=== PATIENT | female | born 1965 | race Two or more races ===

== ENCOUNTER 2019-06-24 13:42 | Emergency (ER) | payer OTHER ==
[~2019-06-24] VITALS: Ht 154.9 cm; Wt 66.0 kg
[2019-06-24] MEDS ORDERED: TETANUS, DIPHTHERIA, PERTUSSIS VAC/PF 0.5ML (>7YR OLD) IM ONE (16:45)
[2019-06-24] MEDS ORDERED: ACETAMINOPHEN 325MG TABLET PO ONE (16:45)
[2019-06-24] MEDS ORDERED: BACITRACIN ZINC OINT UDPKT TOP ONE ×2 (16:45)
[2019-06-24] MEDS ORDERED: LIDOCAINE HCL/PF 1% 10 MG/ML 5ML VIAL IJ ONE (16:45)
[2019-06-24] MEDS ORDERED: IBUPROFEN 600MG TABLET PO ONE (16:45)
[2019-06-24 19:08] VITALS: BP 154/73
== END 2019-06-24 19:10 | disposition home or self-care (01) ==
LOC: ER 13:54
DX: S61.210A Laceration without foreign body of right index finger without damage to nail, initial encounter (principal); W50.3XXA Accidental bite by another person, initial encounter; Y93.89 Activity, other specified; Y92.018 Other place in single-family (private) house as the place of occurrence of the external cause
CPT/HCPCS: 90471; 90715; 99284; J3490

== ENCOUNTER 2019-07-05 15:13 | Emergency (ER) | payer OTHER ==
[~2019-07-05] VITALS: Ht 152.4 cm; Wt 64.0 kg
[2019-07-05 15:40] VITALS: BP 115/65
== END 2019-07-05 16:50 | disposition home or self-care (01) ==
LOC: ER 15:13
DX: Z48.02 Encounter for removal of sutures (principal)
CPT/HCPCS: 99282; 99283